=== PATIENT | female | born 1960 | race Caucasian/White ===

== ENCOUNTER 2020-04-13 00:19 | Emergency (ER) | payer BC ==
[~2020-04-13] VITALS: Ht 154.9 cm; Wt 48.1 kg
--- NOTE | 2020-04-13 00:20 | NUR ---
PT CAME TO THE ED C/O ULLOA,FEVER AND SORE THROAT SINCE LAST NIGHT. PT AAOX4, VSS, RESPIRATIONS EVEN AND UNLABORED ON RA W/ NAD NOTED. PT CONNECTED TO THE MONITOR AND POX
[2020-04-13] MEDS ORDERED: IV NS 0.9% 1,000 ML IV ONE (00:35)
[2020-04-13] MEDS ORDERED: KETOROLAC TROMETHAMINE INJ 30 MG/ML VIAL ONE (00:39)
--- NOTE | 2020-04-13 00:46 | NUR ---
LINE ESTABLISHED RAC 20G, LABS DRAWSN AND SENT.
--- NOTE | 2020-04-13 00:46 | NUR ---
PT MEDICATED. VSS. ON MONITOR AND PULSE OX. VSS.
--- NOTE | 2020-04-13 00:46 | NUR ---
COVID SWABS SENT TO LAB
[2020-04-13 01:00] LABS: BASOPHILS # (AUTO) 0.4 /CMM (0.0-0.2); BASOPHILS % (AUTO) 2.7 % (0.0-2.0); EOSINOPHILS % (AUTO) 0.1 % (0.0-6.0); HEMATOCRIT 38 % (33-45); LYMPHOCYTES # (AUTO) 0.6 /CMM (0.8-4.8); LYMPHOCYTES % (AUTO) 4.1 % (20.0-44.0); MEAN CORPUSCULAR HGB CONC 31 g/dl (31.0-36.0); MEAN CORPUSCULAR VOLUME 71 fL (82-100); MONOCYTES # (AUTO) 0.9 /CMM (0.1-1.30); MONOCYTES % (AUTO) 6.8 % (2.0-12.0); NEUTROPHILS # (AUTO) 11.8 /CMM (1.8-8.9); NEUTROPHILS % (AUTO) 86.3 % (43.0-81.0); PLATELET COUNT (AUTO) 249 /CMM (150-450); RED BLOOD CELL COUNT(AUTO) 5.42 MIL/uL (4.0-5.2); WHITE BLOOD COUNT (AUTO) 13.7 K/uL (4.3-11.0)
[2020-04-13] MEDS ORDERED: KETOROLAC TROMETHAMINE INJ 30 MG/ML VIAL IV ONE (01:00)
[2020-04-13 01:14] LABS: ALBUMIN 3.6 g/dL (3.4-5.0); BILIRUBIN,TOTAL 0.2 mg/dL (0.2-1.0); CALCIUM, SERUM 8.7 mg/dL (8.5-10.1); CREATININE 0.7 mg/dL (0.6-1.3); POTASSIUM 3.8 mmol/L (3.5-5.1); TOTAL PROTEIN, SERUM 6.9 g/dL (6.4-8.2)
--- NOTE | 2020-04-13 02:10 | NUR ---
Patient discharged to home in stable condition. Written and verbal after care instructions given. Patient verbalizes understanding of instruction.IV removed. Catheter intact and site benign. Pressure and 4x4 applied to site. No bleeding noted.
[2020-04-13 02:11] VITALS: BP 124/68
[2020-04-13 02:26] LABS: BAND % (MANUAL) 4 % (0.0-5.0); LYMPHOCYTES % (MANUAL) 10 % (16-48); MONOCYTES % (MANUAL) 3 % (0-11.0); NEUTROPHILS % (MANUAL) 81 (42-76); PROMYELOCYTES % 1 % (0-0); REACTIVE LYMPHOCYTES 1 % (0-0)
--- NOTE | 2020-04-13 21:43 | NUR ---
COVID NEGATIVE PER LAB
== END 2020-04-13 02:11 | disposition home or self-care (01) ==
LOC: ER 00:23
DX: B34.9 Viral infection, unspecified (principal); R51 Headache; Z20.828 Contact with and (suspected) exposure to other viral communicable diseases
CPT/HCPCS: 36415; 71045; 80053; 83615; 85025; 87426; 96361; 96374; 99284; C9803; J1885; J7030; U0003